=== PATIENT | male | born 1950 | race Caucasian/White ===

== ENCOUNTER 2016-05-22 11:39 | Day surgery (SDC) | payer MEDICARE ==
[~2016-05-22] VITALS: Ht 170.2 cm; Wt 85.6 kg
[2016-05-22 12:49] VITALS: BP 170/91; PULSE 85; TEMP 98.4
[2016-05-22] MEDS ORDERED: PRINIVIL40 MG PO (12:59)
[2016-05-22] MEDS ORDERED: CRESTOR20 MG PO (12:59)
[2016-05-22] MEDS ORDERED: ASPIRIN 81M81 MG/TA2 PO (13:00)
[2016-05-22] MEDS ORDERED: VITAMIND3 5000 PO (13:00)
[2016-05-22] MEDS ORDERED: FLOMAX 0.40.4 MG/CAP PO (13:00)
[2016-05-22] MEDS ORDERED: NORCO 325 MG-51 TAB PO (14:58)
[2016-05-22] MEDS ORDERED: ZOFRAN ODT4 MG PO (14:58)
[2016-05-22 15:17] VITALS: BP 134/75; PULSE 77; TEMP 97.3
[2016-05-22 15:32] VITALS: BP 133/77; PULSE 71
[2016-05-22 15:45] VITALS: BP 138/72; PULSE 68
[2016-05-22 16:22] VITALS: BP 139/93; PULSE 72; TEMP 98.4
== END 2016-05-22 16:30 | disposition home or self-care (01) ==
LOC: SDCO 11:39
DX: K40.90 Unilateral inguinal hernia, without obstruction or gangrene, not specified as recurrent (principal); I25.10 Atherosclerotic heart disease of native coronary artery without angina pectoris; I25.2 Old myocardial infarction; I10 Essential (primary) hypertension; F17.210 Nicotine dependence, cigarettes, uncomplicated
CPT/HCPCS: C1781; J0690; J1100; J1885; J2270; J2405; J2704; J3010; J7120